=== PATIENT | female | born 1950 | race Caucasian/White ===

== ENCOUNTER 2017-10-10 18:07 | Emergency (ER) | payer MEDICARE, OTHER ==
[~2017-10-10] VITALS: Ht 157.5 cm; Wt 56.7 kg
[2017-10-10 18:07] VITALS: BP 138/83
[~2017-10-10 18:07] MED LIST: ACET325T9 PO; ASPI81TA59 PO; ATOR20TA58 PO; CARV3.12 PO
--- NOTE | 2017-10-10 20:00 | RAD ---
Clinical Indication: Left lower extremity intermittent pain for 3 weeks. Technique: Study is dated October 10, 2017. Grayscale, color flow and spectral waveform analysis was performed of the left lower extremity with and without compression. Findings: There is normal compressibility of all visualized vein segments. No evidence of DVT is present on grayscale or color images. There is normal phasicity of waveform. There is normal augmentation. Impression: No evidence of deep vein thrombosis. Electronically signed by: Bhavin Jurado MD (10/10/2017 7:57 PM) [facility]
[2017-10-10] MEDS ORDERED: METH4TAB2 PO (20:36)
--- NOTE | 2017-10-10 20:36 | PHYS DOC ---
Past History Past Medical History: CAD, Hypertension, [place] Past Surgical History: No Surgical History, Tonsillectomy Alcohol Use: None Drug Use: None Adult General Chief Complaint Chief Complaint: LOWER EXT PAIN HPI HPI Patient is a 67 year old female who presents with complaint of left lower shoulder pain. Patient states that she has been having pain and cramping off and on over the past 2 weeks. The patient states that the pain originates towards the back of her leg and travels down to her foot. Patient states that the pain worsens with movement. Patient has not noticed any swelling to the affected extremity. Patient states that she injured her back in July of this year and underwent therapy with chiropractor which helped reduce her back pain. Patient does not remember falling or having any additional injury but states that she has been working outside in her yard and started noticing worsening pain in the left leg since then. Patient has taken aspirin at home with no significant improvement in symptoms. The patient is primarily concerned that she may have a blood clot in her left lower extremity. Patient denies any prolonged immobilization, recent travel or surgery, or history of DVT. The patient states that her pain worsens with movement rates as 8 out of 10 at its worst. Review of Systems Review of Systems Constitutional: Denies fever or chills [] Eyes: Denies change in visual acuity, redness, or eye pain [] HENT: Denies nasal congestion or sore throat [] Respiratory: Denies cough or shortness of breath [] Cardiovascular: Denies chest pain or edema[] GI: Denies abdominal pain, nausea, vomiting, bloody stools or diarrhea [] : Denies dysuria or hematuria [] Musculoskeletal: Left lower extremity pain[] Integument: Denies rash or skin lesions [] Neurologic: Denies headache, focal weakness or sensory changes [] All other systems were reviewed and found to be within normal limits, except as documented in this note. Allergies Allergies Allergies Coded Allergies Type Severity Reaction Last Updated Verified No Known Drug Allergies 11/14/15 No Physical Exam Physical Exam Constitutional: Well developed, well nourished, no acute distress, non-toxic appearance. [] HENT: Normocephalic, atraumatic, bilateral external ears normal, oropharynx moist, no oral exudates, nose normal. [] Eyes: PERRLA, EOMI, conjunctiva normal, no discharge. [] Neck: Normal range of motion, no tenderness, supple, no stridor. [] Cardiovascular:Heart rate regular rhythm, no murmur [] Lungs & Thorax: Bilateral breath sounds clear to auscultation [] Abdomen: Bowel sounds normal, soft, no tenderness, no masses, no pulsatile masses. [] Skin: Warm, dry, no erythema, no rash. [] Back: No midline or paraspinous muscle tenderness to palpation, no CVA tenderness. [] Extremities: No obvious swelling or deformity to the left lower extremity, mild tenderness to palpation along posterior aspect of left thigh and left calf, no cyanosis, no clubbing, ROM intact, no edema. [] Neurologic: Alert and oriented X 3, normal motor function, normal sensory function, no focal deficits noted. [] Current Patient Data Vital Signs Vital Signs Date Time Temp Pulse Resp B/P (MAP) Pulse Ox O2 Delivery O2 Flow Rate FiO2 10/10/17 18:07 97.0 71 20 96 Room Air EKG EKG Not performed[] Radiology/Procedures Radiology/Procedures [address] [address] IMAGING REPORT Signed PATIENT: CALEB TAYLOR ACCOUNT: [id number] : 1950 LOCATION: ER AGE: 67 SEX: F EXAM STATUS: REG ER ORD. PHYSICIAN: BA MELENDEZ MD REASON: pain in calf left leg PROCEDURE: VENOUS LOWER EXTREMITY LEFT Clinical Indication: Left lower extremity intermittent pain for 3 weeks. Technique: Study is dated October 10, 2017. Grayscale, color flow and spectral waveform analysis was performed of the left lower extremity with and without compression. Findings: There is normal compressibility of all visualized vein segments. No evidence of DVT is present on grayscale or color images. There is normal phasicity of waveform. There is normal augmentation. Impression: No evidence of deep vein thrombosis. Electronically signed by: Bhavin Jurado MD (10/10/2017 7:57 PM) [facility] DICTATED AND SIGNED BY: BHAVIN JURADO MD DATE: 10/10/171955 CC: BA MELENDEZ MD; DANIEL LEAL MD ~ [] Course & Med Decision Making Course & Med Decision Making Pertinent Labs and Imaging studies reviewed. (See chart for details) Ultrasound negative for DVT. Patient's symptoms appear consistent with sciatica. The patient will be started on Medrol Dosepak for continued treatment. Advised continued use of Tylenol at home to help with pain. Recommended follow-up in 5-7 days with primary doctor for reevaluation and return to emergency department for any worsening symptoms. Patient was understanding and in agreement with treatment plan. Dragon Disclaimer Dragon Disclaimer This electronic medical record was generated, in whole or in part, using a voice recognition dictation system. Departure Departure: Impression: Primary Impression: Sciatica Disposition: HOME, SELF-CARE Condition: STABLE Referrals: DANIEL LEAL MD (PCP) Patient Instructions: Sciatica Additional Instructions: Follow-up with your primary doctor in 5-7 days. Return to the emergency department for any worsening symptoms. Scripts Methylprednisolone (MEDROL) 4 Mg Tab.ds.pk 1 PKG PO UD, #1 PKG Prov: BA MELENDEZ MD 10/10/17 Problem Qualifiers Primary Impression: Sciatica Laterality: left Qualified Codes: M54.32 - Sciatica, left side BA MELENDEZ MD Oct 10, 2017 20:36
== END 2017-10-10 20:38 | disposition home or self-care (01) ==
LOC: ER 18:07
DX: M54.32 Sciatica, left side (principal); I25.10 Atherosclerotic heart disease of native coronary artery without angina pectoris; I10 Essential (primary) hypertension; I25.2 Old myocardial infarction
CPT/HCPCS: 93971; 99284-25

== ENCOUNTER 2018-09-28 20:56 | Emergency (ER) | payer MEDICARE, OTHER ==
[~2018-09-28] VITALS: Ht 162.6 cm; Wt 59.0 kg
[~2018-09-28 20:56] MED LIST changes: +METH4TAB2 PO
--- NOTE | 2018-09-28 21:04 | ED.ADGEN ---
Past History Past Medical History: Anxiety, Arthritis, CAD, Hypertension, [place] Past Surgical History: No Surgical History, Tonsillectomy Smoking: Cigarettes Alcohol Use: None Drug Use: None Adult General Chief Complaint Chief Complaint "... I was just sitting on the couch.. and watching some shows.. petting my cat " Rotten" he is about 17 yrs. old.. he has three legs.. . but about 4:30 I was feeling a little off.. and checked my BP it was 185/80... I took my meds.. a nd re- checked later and it was 209/90... I called...and they said come in and get checked out... HPI HPI Patient is a 68 year old female who presents with above hx and complaints of accelerated HTN. Pt. has hx of HTN, CADz and TN . Pt. reports compliance with her hypertensive meds. Patient denies any change in meds. Patient denies any excessive use of anti-histamines for her recent upper respiratory infection. Patient normally follows with Dr. Vasquez. No recent travel. No specific ill contacts. No history immunosuppression. Review of Systems Review of Systems Constitutional: Denies fever or chills [] Eyes: Denies change in visual acuity, redness, or eye pain [] HENT: Hx nasal congestion Respiratory: Denies cough or shortness of breath [] Cardiovascular: No additional information not addressed in HPI [] GI: Denies abdominal pain, nausea, vomiting, bloody stools or diarrhea [] : Denies dysuria or hematuria [] Musculoskeletal: Denies back pain or joint pain [] Integument: Denies rash or skin lesions [] Neurologic: Denies headache, focal weakness or sensory changes [] Endocrine: Denies polyuria or polydipsia [] All other systems were reviewed and found to be within normal limits, except as documented in this note. Family History Family History HTN Current Medications Current Medications Current Medications Medications (Trade) Dose Ordered Sig/Thalia Start Time Stop Time Status Last Admin Dose Admin Clonidine HCl (Catapres Tts-2) 1 patch 1X ONCE 09/28/18 22:45 09/28/18 22:47 DC 09/28/18 23:46 1 PATCH Clonidine HCl (Catapres) 0.2 mg 1X ONCE 09/28/18 22:45 09/28/18 22:47 DC Info (Do NOT chart on this entry -- for MONITORING) 1 each PRN DAILY PRN 09/29/18 00:15 09/29/18 02:35 DC Iohexol (Omnipaque 350 Mg/ml) 90 ml 1X ONCE 09/29/18 00:15 09/29/18 00:16 DC 09/29/18 00:21 90 ML Lactated Ringer's 1,000 ml @ 100 mls/hr Q10H 09/28/18 21:15 09/29/18 02:35 DC 09/28/18 23:45 100 MLS/HR Allergies Allergies Allergies Coded Allergies Type Severity Reaction Last Updated Verified tetanus and diphtheria toxoids Allergy Unknown 09/28/18 Yes Physical Exam Physical Exam Constitutional: Mild distress, non-toxic appearance. [] HENT: Normocephalic, atraumatic, bilateral external ears normal, oropharynx moist, no oral exudates, recent nasal congestion. Eyes: PERRLA, EOMI, conjunctiva normal, no discharge. [] Glasses Neck: Normal range of motion, no tenderness, supple, no stridor. [] Cardiovascular : Bradycardia Heart rate regular rhythm, no murmur [] Lungs & Thorax: Bilateral breath sounds equal at apexes with few scattered wheezes auscultation [] Abdomen: Bowel sounds normal, soft, no tenderness, no masses, no pulsatile masses. [] Skin: Warm, dry, no erythema, no rash. [] Back: No tenderness, no CVA tenderness. [] Extremities: No tenderness, no cyanosis, no clubbing, ROM intact, no edema. [] Mild arthritic changes. Neurologic: Alert and oriented X 3, normal motor function, normal sensory function, no focal deficits noted. [] Psychologic: Affect anxious, judgement normal, mood normal. [] Current Patient Data Vital Signs Vital Signs Date Time Temp Pulse Resp B/P (MAP) Pulse Ox O2 Delivery O2 Flow Rate FiO2 09/28/18 21:10 98.2 75 20 163/67 (99) 95 Room Air Lab Results Laboratory Tests Test 09/28/18 21:30 White Blood Count 7.8 x10^3/uL (4.0-11.0) Red Blood Count 4.87 x10^6/uL (3.50-5.40) Hemoglobin 15.2 g/dL (12.0-15.5) Hematocrit 44.8 % (36.0-47.0) Mean Corpuscular Volume 92 fL (79-100) Mean Corpuscular Hemoglobin 31 pg (25-35) Mean Corpuscular Hemoglobin Concent 34 g/dL (31-37) Red Cell Distribution Width 14.7 % (11.5-14.5) H Platelet Count 300 x10^3/uL (140-400) Neutrophils (%) (Auto) 61 % (31-73) Lymphocytes (%) (Auto) 30 % (24-48) Monocytes (%) (Auto) 8 % (0-9) Eosinophils (%) (Auto) 1 % (0-3) Basophils (%) (Auto) 1 % (0-3) Neutrophils # (Auto) 4.7 x10^3uL (1.8-7.7) Lymphocytes # (Auto) 2.3 x10^3/uL (1.0-4.8) Monocytes # (Auto) 0.6 x10^3/uL (0.0-1.1) Eosinophils # (Auto) 0.1 x10^3/uL (0.0-0.7) Basophils # (Auto) 0.1 x10^3/uL (0.0-0.2) Prothrombin Time 9.8 SEC (9.4-11.4) Prothrombin Time INR 1.0 (0.9-1.1) PTT 29 SEC (23-33) D-Dimer (Dolly) 0.71 mg/L (0.00-0.50) H Urine Collection Type Void Urine Color Yellow Urine Clarity Clear Urine pH 6.0 Urine Specific [place] 1.010 Urine Protein Neg (NEG-TRACE) Urine Glucose (UA) Neg mg/dL (NEG) Urine Ketones (Stick) Neg mg/dL (NEG) Urine Blood Trace (NEG) Urine Nitrite Neg (NEG) Urine Bilirubin Neg (NEG) Urine Urobilinogen Dipstick 0.2 mg/dL (0.2 mg/dL) Urine Leukocyte Esterase Neg (NEG) Urine RBC Occ /HPF (0-2) Urine WBC 0 /HPF (0-4) Urine Squamous Epithelial Cells Occ /LPF Urine Bacteria 0 /HPF (0-FEW) Sodium Level 135 mmol/L (136-145) L Potassium Level 4.3 mmol/L (3.5-5.1) Chloride Level 100 mmol/L (98-107) Carbon Dioxide Level 25 mmol/L (21-32) Anion Gap 10 (6-14) Blood Urea Nitrogen 15 mg/dL (7-20) Creatinine 0.8 mg/dL (0.6-1.0) Estimated GFR (Cockcroft-Gault) 71.5 Glucose Level 91 mg/dL (70-99) Calcium Level 9.0 mg/dL (8.5-10.1) Magnesium Level 2.1 mg/dL (1.8-2.4) Total Bilirubin 0.2 mg/dL (0.2-1.0) Direct Bilirubin 0.1 mg/dL (0.0-0.2) Aspartate Amino Transferase (AST) 19 U/L (15-37) Alanine Aminotransferase (ALT) 23 U/L (14-59) Alkaline Phosphatase 78 U/L (46-116) Creatine Kinase 56 U/L (26-192) Troponin I Quantitative < 0.017 ng/mL (0-0.055) MK-Rrs-W-Type Natriuretic Peptide 81 pg/mL (0-124) Total Protein 6.9 g/dL (6.4-8.2) Albumin 3.7 g/dL (3.4-5.0) Lipase 110 U/L (73-393) EKG EKG My interpretation EKG shows a sinus rhythm at 62 bpm. No findings acute STEMI of contralateral changes.[] Radiology/Procedures Radiology/Procedures My interpretation chest x-ray shows no acute cardiopulmonary findings.[]Does have some emphysematous COPD like changes. Some nodules Lt LL or patchy infiltrates CT of chest shows no central PE. Had Cystic Emphysema and nodules LtLL. See formal reports when available. Course & Med Decision Making Course & Med Decision Making Pertinent Labs and Imaging studies reviewed. (See chart for details). Pt. currently declines admission. Pt.to follow up with Dr. Vasquez and review blood pressure meds and x-rays and labs completed tonight in the emergency department. Patient should have follow- up CT or ultrasound evaluation of left lower pulmonary nodules. Encouraged on smoking. Patient return if any concerns. Patient wear clonidine patch until follow-up. If blood pressure becomes too low remove blood pressure patch. Return if any concerns. [] Final Impression Final Impression 1. Accelerated HTN[] 2. Elevated D-dimer 0.71 3. Emphysema 4. Lt. Lower lung nodules 5. Mild Elevation of D-dimer. 0.71 Dragon Disclaimer Dragon Disclaimer This electronic medical record was generated, in whole or in part, using a voice recognition dictation system. Discharge Summary Visit Information Final Diagnosis Problems Medical Problems: (1) Hypertension Status: Acute (2) Pulmonary nodules Status: Acute Brief Hospital Course Allergies Allergies Coded Allergies Type Severity Reaction Last Updated Verified tetanus and diphtheria toxoids Allergy Unknown 09/28/18 Yes Vital Signs Vital Signs Date Time Temp Pulse Resp B/P (MAP) Pulse Ox O2 Delivery O2 Flow Rate FiO2 09/28/18 21:10 98.2 75 20 163/67 (99) 95 Room Air Lab Results Laboratory Tests Test 09/28/18 21:30 White Blood Count 7.8 x10^3/uL (4.0-11.0) Red Blood Count 4.87 x10^6/uL (3.50-5.40) Hemoglobin 15.2 g/dL (12.0-15.5) Hematocrit 44.8 % (36.0-47.0) Mean Corpuscular Volume 92 fL (79-100) Mean Corpuscular Hemoglobin 31 pg (25-35) Mean Corpuscular Hemoglobin Concent 34 g/dL (31-37) Red Cell Distribution Width 14.7 % (11.5-14.5) Platelet Count 300 x10^3/uL (140-400) Neutrophils (%) (Auto) 61 % (31-73) Lymphocytes (%) (Auto) 30 % (24-48) Monocytes (%) (Auto) 8 % (0-9) Eosinophils (%) (Auto) 1 % (0-3) Basophils (%) (Auto) 1 % (0-3) Neutrophils # (Auto) 4.7 x10^3uL (1.8-7.7) Lymphocytes # (Auto) 2.3 x10^3/uL (1.0-4.8) Monocytes # (Auto) 0.6 x10^3/uL (0.0-1.1) Eosinophils # (Auto) 0.1 x10^3/uL (0.0-0.7) Basophils # (Auto) 0.1 x10^3/uL (0.0-0.2) Prothrombin Time 9.8 SEC (9.4-11.4) Prothromb Time International Ratio 1.0 (0.9-1.1) Activated Partial Thromboplast Time 29 SEC (23-33) D-Dimer (Dolly) 0.71 mg/L (0.00-0.50) Urine Collection Type Void Urine Color Yellow Urine Clarity Clear Urine pH 6.0 Urine Specific [place] 1.010 Urine Protein Neg (NEG-TRACE) Urine Glucose (UA) Neg mg/dL (NEG) Urine Ketones (Stick) Neg mg/dL (NEG) Urine Blood Trace (NEG) Urine Nitrite Neg (NEG) Urine Bilirubin Neg (NEG) Urine Urobilinogen Dipstick 0.2 mg/dL (0.2 mg/dL) Urine Leukocyte Esterase Neg (NEG) Urine RBC Occ /HPF (0-2) Urine WBC 0 /HPF (0-4) Urine Squamous Epithelial Cells Occ /LPF Urine Bacteria 0 /HPF (0-FEW) Sodium Level 135 mmol/L (136-145) Potassium Level 4.3 mmol/L (3.5-5.1) Chloride Level 100 mmol/L (98-107) Carbon Dioxide Level 25 mmol/L (21-32) Anion Gap 10 (6-14) Blood Urea Nitrogen 15 mg/dL (7-20) Creatinine 0.8 mg/dL (0.6-1.0) Estimated GFR (Cockcroft-Gault) 71.5 Glucose Level 91 mg/dL (70-99) Calcium Level 9.0 mg/dL (8.5-10.1) Magnesium Level 2.1 mg/dL (1.8-2.4) Total Bilirubin 0.2 mg/dL (0.2-1.0) Direct Bilirubin 0.1 mg/dL (0.0-0.2) Aspartate Amino Transf (AST/SGOT) 19 U/L (15-37) Alanine Aminotransferase (ALT/SGPT) 23 U/L (14-59) Alkaline Phosphatase 78 U/L (46-116) Creatine Kinase 56 U/L (26-192) Troponin I Quantitative < 0.017 ng/mL (0-0.055) NJ-Tfh-A-Type Natriuretic Peptide 81 pg/mL (0-124) Total Protein 6.9 g/dL (6.4-8.2) Albumin 3.7 g/dL (3.4-5.0) Lipase 110 U/L (73-393) Brief Hospital Course Ms. Orozco is a 68 old female who presented with accelerated HTN. Declined admit. To follow up with primary. Discharge Information Condition at Discharge: Improved, Stable Disposition/Orders: D/C to Home Dischare Medications Current Medications Lactated Ringer's 1,000 ml @ 100 mls/hr Q10H IV Last administered on 09/28/18at 23:45; Admin Dose 100 MLS/HR; Start 09/28/18 at 21:15; Stop 09/29/18 at 02:35; Status DC Clonidine HCl (Catapres Tts-2) 1 patch 1X ONCE TD Last administered on 09/28/18at 23:46; Admin Dose 1 PATCH; Start 09/28/18 at 22:45; Stop 09/28/18 at 22:47; Status DC Clonidine HCl (Catapres) 0.2 mg 1X ONCE PO ; Start 09/28/18 at 22:45; Stop 09/28/18 at 22:47; Status DC Iohexol (Omnipaque 350 Mg/ml) 90 ml 1X ONCE IV Last administered on 09/29/18at 00:21; Admin Dose 90 ML; Start 09/29/18 at 00:15; Stop 09/29/18 at 00:16; Status DC Info (Do NOT chart on this entry -- for MONITORING) 1 each PRN DAILY PRN MC SEE COMMENTS; Start 09/29/18 at 00:15; Stop 09/29/18 at 02:35; Status DC Active Scripts Active Reported Tylenol (Acetaminophen) 325 Mg Tablet 2 Tab PO PRN Q4HRS may resume as needed Atorvastatin Calcium 20 Mg Tablet 1 Tab PO HS may resume not given this admit Coreg (Carvedilol) 3.125 Mg Tablet 1 Tab PO BID last dose last night next dose due tonight Children's Aspirin (Aspirin) 81 Mg Tab.chew 81 Mg PO DAILY may resume not given this admit Dragon Disclaimer This chart was dictated in whole or in part using Voice Recognition software in a busy, high-work load, and often noisy Emergency Department environment. It may contain unintended and wholly unrecognized errors or omissions. PIPE CARBONE MD Sep 28, 2018 21:04
[2018-09-28] MEDS ORDERED: IV RINGERS SOLUTION,LACTATED 1,000 ML IV SCH (21:15)
--- NOTE | 2018-09-28 21:27 | EKG ---
[address] [address] Test Date: 2018-09-28 Test Time: 21:25:16 Pat Name: CALEB TAYLOR Department: Room: Gender: F Referral Rn: : [id number] Requested By: PIPE CARBONE Order Number: [id number] Reading MD: Measurements Intervals [place] Rate: 62 P: 47 TN: 134 QRS: 64 QRSD: 82 T: 39 QT: 412 QTc: 420 Interpretive Statements SINUS RHYTHM NO SPECIFIC ECG ABNORMALITIES RI6.01 Compared to ECG 11/14/2015 21:07:52 No significant changes
[2018-09-28 22:02] LABS: BASO # 0.1 x10^3/uL (0.0-0.2); BASO % 1 % (0-3); EOS # 0.1 x10^3/uL (0.0-0.7); EOS % 1 % (0-3); HEMATOCRIT 44.8 % (36.0-47.0); HEMOGLOBIN 15.2 g/dL (12.0-15.5); LYMPH # 2.3 x10^3/uL (1.0-4.8); LYMPH % 30 % (24-48); MEAN CORPUSCULAR HEMOGLOBIN 31 pg (25-35); MEAN CORPUSCULAR HGB CONC 34 g/dL (31-37); MEAN CORPUSCULAR VOLUME 92 fL (79-100); MONO # 0.6 x10^3/uL (0.0-1.1); MONO % 8 % (0-9); NEUT # 4.7 x10^3uL (1.8-7.7); NEUT % 61 % (31-73); PLATELET COUNT 300 x10^3/uL (140-400); RED BLOOD COUNT 4.87 x10^6/uL (3.50-5.40); RED CELL DISTRIBUTION WIDTH 14.7 % (11.5-14.5); WHITE BLOOD COUNT 7.8 x10^3/uL (4.0-11.0)
[2018-09-28 22:07] LABS: BACTERIA,URINE 0 /HPF (0-FEW); BILIRUBIN,URINE NEG (NEG); CLARITY,URINE CLEAR; COLOR,URINE YELLOW; GLUCOSE,URINE NEG (NEG); NITRITE,URINE NEG (NEG); RBC,URINE OCC /HPF (0-2); SQUAMOUS EPITHELIAL CELL,UR OCC /LPF; UROBILINOGEN,URINE 0.2 mg/dL (0.2 mg/dL); WBC,URINE 0 /HPF (0-4)
[2018-09-28 22:20] LABS: ALBUMIN 3.7 g/dL (3.4-5.0); CREATININE 0.8 mg/dL (0.6-1.0); DIRECT BILIRUBIN 0.1 mg/dL (0.0-0.2); GFR 71.5; MAGNESIUM 2.1 mg/dL (1.8-2.4); POTASSIUM 4.3 mmol/L (3.5-5.1); TOTAL BILIRUBIN 0.2 mg/dL (0.2-1.0); TOTAL PROTEIN 6.9 g/dL (6.4-8.2)
[2018-09-28] MEDS ORDERED: cloNIDine HCL 0.1 MG TABLET PO ONE (22:45)
[2018-09-28] MEDS ORDERED: cloNIDine TTS-2 1 PATCH PATCH TD ONE (22:45)
[2018-09-29] MEDS ORDERED: CONTRAST GIVEN MC PRN (00:15)
[2018-09-29] MEDS ORDERED: IOHEXOL 350 MG/ML 100 ML VIAL. IV ONE (00:15)
--- NOTE | 2018-09-29 01:35 | RAD ---
INDICATION: Dyspnea COMPARISON: October 2015 TECHNIQUE: Axial CT images obtained through the chest. Intravenous contrast utilized. Angiogram 3D images processed per protocol. One or more of the following individualized dose reduction techniques were utilized for this examination: 1. Automated exposure control; 2. Adjustment of the mA and/or kV according to patient size; 3. Use of iterative reconstruction technique. FINDINGS: Large amount of patient motion limits the exam. Cystic changes bilateral lungs. No evidence of pneumothorax. There are some groundglass opacities. Multifocal plaque is seen throughout the thoracic aorta. Scattered lymph nodes within the mediastinum. Degenerative changes spine. Portion of a ascending thoracic aorta obscured by motion but no definite aneurysm in visualized portions. Nodular structure at the left lower lung measuring up to approximately 15 x 6 mm. There is a couple of adjacent nodular structures No embolus in the main, right main or left main pulmonary artery. Motion limits more peripheral evaluation. Mild loss of height of some of the thoracic vertebral bodies. IMPRESSION: No embolus in the central pulmonary arteries however motion limits peripheral evaluation. Within the left lower lung there is a cluster of nodular structure identified. Although its possible that this could be from causes such as nodular atelectasis follow-up will be needed to ensure no increase in this finding. Further workup option includes either obtaining a short interval follow-up CT in 3 months or a PET/CT now to further evaluate given that neoplastic causes are within the differential for this finding. There are some prominent lymph nodes in the mediastinum and hilum could be followed at that time as well. Cystic changes within the lungs. Mild groundglass opacities. Could be from atelectasis but small airway inflammation or edema can have this appearance as well. Electronically signed by: Tony Gemran MD (09/29/2018 1:32 AM) [facility]
[2018-09-29 02:00] VITALS: BP 128/66
--- NOTE | 2018-09-29 07:17 | RAD ---
EXAM: CHEST 1 VIEW History: Dyspnea, hypertension COMPARISON: None available. TECHNIQUE: Single portable radiograph of the chest FINDINGS: The cardiac silhouette is unremarkable. The lungs are clear bilaterally. The costophrenic sulci are clear and well demarcated. IMPRESSION: No radiographic evidence of an acute cardiopulmonary process.
[2018-09-29 14:05] LABS: THYROID STIM HORMONE (TSH) 4.932 uIU/mL (0.358-3.740)
== END 2018-09-29 02:30 | disposition home or self-care (01) ==
LOC: ER 20:56
DX: I10 Essential (primary) hypertension (principal); R79.1 Abnormal coagulation profile; J43.9 Emphysema, unspecified; R91.8 Other nonspecific abnormal finding of lung field; F41.9 Anxiety disorder, unspecified; M19.90 Unspecified osteoarthritis, unspecified site; I25.10 Atherosclerotic heart disease of native coronary artery without angina pectoris; I25.2 Old myocardial infarction; F17.210 Nicotine dependence, cigarettes, uncomplicated; Z88.7 Allergy status to serum and vaccine
CPT/HCPCS: 36415; 71046; 71275; 80048; 80061; 80076; 81001; 82550; 83690; 83735; 83880; 84443; 84484; 85025; 85379; 85610; 85730; 93005; 99285; J7120; Q9967

== ENCOUNTER 2018-11-18 11:35 | Observation (INO) | payer MEDICARE, OTHER ==
[~2018-11-18] VITALS: Ht 162.6 cm; Wt 58.1 kg
--- NOTE | 2018-11-18 12:10 | PHYS DOC ---
Past History Past Medical History: Anxiety, Arthritis, CAD, High Cholesterol, Hypertension, [place] Past Surgical History: Tonsillectomy Smoking: Cigarettes Additional Smoking Information: PACK/DAY Alcohol Use: Rarely Drug Use: None Adult General Chief Complaint Chief Complaint: CHEST PAIN HPI HPI Patient is a 68-year-old female presents complaining of chest discomfort that started this morning shortly after waking up from sleep. Increases with both exertion as well as movement of her left arm. No nausea or vomiting. No diaphoresis. She had similar chest discomfort in November 2012 when she was diagnosed with an [place]. She underwent cardiac catheter and the clot dissolved as it was being manipulated. She denies having any cardiac stents. Reports that the discomfort is currently a 3 out of 10 with rest, increases to an 8 or 9 out of 10 with movement and exertion. Denies any shortness of breath. Denies any respirophasic component to the discomfort.[] Review of Systems Review of Systems Constitutional: Denies fever or chills [] Eyes: Denies change in visual acuity, redness, or eye pain [] HENT: Denies nasal congestion or sore throat [] Respiratory: Denies cough or shortness of breath [] Cardiovascular: No additional information not addressed in HPI [] GI: Denies abdominal pain, nausea, vomiting, bloody stools or diarrhea [] : Denies dysuria or hematuria [] Musculoskeletal: Denies back pain or joint pain [] Integument: Denies rash or skin lesions [] Neurologic: Denies headache, focal weakness or sensory changes [] Endocrine: Denies polyuria or polydipsia [] All other systems were reviewed and found to be within normal limits, except as documented in this note. Allergies Allergies Allergies Coded Allergies Type Severity Reaction Last Updated Verified tetanus and diphtheria toxoids Allergy Unknown 09/28/18 Yes Physical Exam Physical Exam Constitutional: Well developed, well nourished, no acute distress, non-toxic appearance. [] HENT: Normocephalic, atraumatic, bilateral external ears normal, oropharynx moist, no oral exudates, nose normal. [] Eyes: PERRLA, EOMI, conjunctiva normal, no discharge. [] Neck: Normal range of motion, no tenderness, supple, no stridor. [] Cardiovascular:Heart rate regular rhythm, no murmur [] Lungs & Thorax: Bilateral breath sounds clear to auscultation [] Abdomen: Bowel sounds normal, soft, no tenderness, no masses, no pulsatile masses. [] Skin: Warm, dry, no erythema, no rash. [] Back: No tenderness, no CVA tenderness. [] Extremities: No tenderness, no cyanosis, no clubbing, ROM intact, no edema. [] Neurologic: Alert and oriented X 3, normal motor function, normal sensory function, no focal deficits noted. [] Psychologic: Affect normal, judgement normal, mood normal. [] Current Patient Data Vital Signs Vital Signs Date Time Temp Pulse Resp B/P (MAP) Pulse Ox O2 Delivery O2 Flow Rate FiO2 11/18/18 11:40 98.0 68 20 97 Room Air EKG EKG EKG shows a sinus rhythm at 58 bpm, normal axis, normal QTC, no ST elevations. Interpreted by me at 1152. Compared with EKG of 09/28/2018, no acute changes are present.[] Radiology/Procedures Radiology/Procedures PROCEDURE: PORTABLE CHEST 1V Examination: PORTABLE CHEST 1V History: Chest pain Comparison/Correlation: 09/29/2018 CT chest with contrast Findings: Upright portable frontal view chest was obtained. Heart size and pulmonary vasculature are normal. No infiltrate or pleural effusion. No pneumothorax. Bony structures are unremarkable. Levoconvex scoliosis of the low thoracic and upper lumbar spine is partially seen. Impression: No active disease.[] Course & Med Decision Making Course & Med Decision Making Pertinent Labs and Imaging studies reviewed. (See chart for details) [] Dragon Disclaimer Dragon Disclaimer This electronic medical record was generated, in whole or in part, using a voice recognition dictation system. Departure Departure: Referrals: DANIEL LEAL MD (PCP) FELIPE CRUZ DO Nov 18, 2018 12:10
[2018-11-18] MEDS ORDERED: NITROGLYCERIN SUBLINGUAL 0.4 MG BOTTLE OF 25. SL PRN ×2 (12:15→13:30)
--- NOTE | 2018-11-18 12:16 | EKG ---
[address] [address] Test Date: 2018-11-18 Test Time: 11:48:56 Pat Name: CALEB TAYLOR Department: Room: Gender: F Tobacco Prizer: : 1950 Requested By: FELIPE CRUZ Order Number: [id number] Reading MD: Measurements Intervals [place] Rate: 58 P: 45 DE: 132 QRS: 81 QRSD: 78 T: 47 QT: 428 QTc: 424 Interpretive Statements SINUS RHYTHM NORMAL ECG RI6.01 No previous ECG available for comparison
[2018-11-18 12:17] LABS: BASO # 0.1 x10^3/uL (0.0-0.2); BASO % 1 % (0-3); EOS % 1 % (0-3); HEMATOCRIT 44.7 % (36.0-47.0); HEMOGLOBIN 14.9 g/dL (12.0-15.5); LYMPH # 1.6 x10^3/uL (1.0-4.8); LYMPH % 21 % (24-48); MEAN CORPUSCULAR HEMOGLOBIN 31 pg (25-35); MEAN CORPUSCULAR HGB CONC 33 g/dL (31-37); MEAN CORPUSCULAR VOLUME 94 fL (79-100); MONO # 0.5 x10^3/uL (0.0-1.1); MONO % 6 % (0-9); NEUT # 5.7 x10^3uL (1.8-7.7); NEUT % 72 % (31-73); PLATELET COUNT 290 x10^3/uL (140-400); RED BLOOD COUNT 4.75 x10^6/uL (3.50-5.40); RED CELL DISTRIBUTION WIDTH 14.8 % (11.5-14.5); WHITE BLOOD COUNT 7.9 x10^3/uL (4.0-11.0)
--- NOTE | 2018-11-18 12:25 | RAD ---
Examination: PORTABLE CHEST 1V History: Chest pain Comparison/Correlation: 09/29/2018 CT chest with contrast Findings: Upright portable frontal view chest was obtained. Heart size and pulmonary vasculature are normal. No infiltrate or pleural effusion. No pneumothorax. Bony structures are unremarkable. Levoconvex scoliosis of the low thoracic and upper lumbar spine is partially seen. Impression: No active disease. Electronically signed by: Vinicio Wild MD (11/18/2018 12:22 PM) [id number]
[2018-11-18 12:58] LABS: ALBUMIN 3.7 g/dL (3.4-5.0); ALBUMIN/GLOBULIN RATIO 1.2 (1.0-1.7); TOTAL PROTEIN 6.8 g/dL (6.4-8.2)
[2018-11-18 12:59] LABS: CALCIUM 8.8 mg/dL (8.5-10.1); CREATININE 0.8 mg/dL (0.6-1.0); GFR 71.5; TOTAL BILIRUBIN 0.3 mg/dL (0.2-1.0)
[2018-11-18 13:00] LABS: POTASSIUM 4.4 mmol/L (3.5-5.1)
[2018-11-18] MEDS ORDERED: ONDANSETRON PF 4 MG/2 ML VIAL. IV PRN (13:30)
[2018-11-18] MEDS ORDERED: ACETAMINOPHEN 325 MG TABLET PO PRN (13:30)
[2018-11-18 15:32] VITALS: BP 155/58
[2018-11-18] MEDS ORDERED: CARV3.12 PO (16:08)
[2018-11-18] MEDS ORDERED: ACETAMINOPHEN 325 MG TABLET PO SCH (16:15)
--- NOTE | 2018-11-18 19:22 | PDOC2 ---
LEA TELLEZ COLLECTIONS ANALYST 11/18/18 1922: CARDIAC CONSULT DATE OF CONSULT Date Of Consult DATE: 11/18/18 TIME: 19:15 REASON FOR CONSULT Reason for Consult Chest pain REFERRING PHYSICIAN Referring Physician Dr. Hi SOURCE Source: Chart review, Patient HPI History of Present Illness This is a 68 yo female who presented secondary to chest pain. Patient reports pain began this morning. Located in her left chest. Describes as stabbing in nature. Radiated through to her back. No associated dizziness, diaphoresis, SOA, palpitations, or nausea/vomiting. Report DE in 2012; underwent heart cath at that time without any intervention. No recent WALLACE or chest pain with activity. PAST MEDICAL HISTORY Cardiovascular: HTN, hyperipidemia PAST SURGICAL HISTORY Past Surgical History: Tonsillectomy FAMILY HISTORY Family History: Diabetes SOCIAL HISTORY Smoke: 1 pack per day ALCOHOL: none Lives: with Family CURRENT MEDICATIONS Current Medications Current Medications Nitroglycerin (Nitrostat) 0.4 mg PRN Q5MIN PRN SL CP RATING > 1/10 Last administered on 11/18/18at 12:16; Start 11/18/18 at 12:15; Stop 11/18/18 at 16:14; Status DC Ondansetron HCl (Zofran) 4 mg PRN Q4HRS PRN IV NAUSEA/VOMITING; Start 11/18/18 at 13:30; Stop 11/19/18 at 13:29 Acetaminophen (Tylenol) 650 mg PRN Q4HRS PRN PO FEVER; Start 11/18/18 at 13:30; Stop 11/19/18 at 13:29 Nitroglycerin (Nitrostat) 0.4 mg PRN Q5MIN PRN SL CHEST PAIN; Start 11/18/18 at 13:30; Stop 11/19/18 at 13:29 Acetaminophen (Tylenol) 650 mg PRN Q4HRS PO ; Start 11/18/18 at 16:15; Stop 11/18/18 at 16:15; Status DC Atorvastatin Calcium (Lipitor) 20 mg HS PO ; Start 11/18/18 at 21:00 Aspirin (Children'S Aspirin) 81 mg DAILYWBKFT PO ; Start 11/19/18 at 08:00 Carvedilol (Coreg) 6.25 mg DAILYWBKFT PO ; Start 11/19/18 at 08:00 Carvedilol (Coreg) 3.125 mg QHS PO ; Start 11/18/18 at 21:00 Active Scripts Active Reported Coreg (Carvedilol) 3.125 Mg Tablet 3.125 Mg PO QHS Tylenol (Acetaminophen) 325 Mg Tablet 2 Tab PO PRN Q4HRS may resume as needed Atorvastatin Calcium 20 Mg Tablet 1 Tab PO HS may resume not given this admit Coreg (Carvedilol) 3.125 Mg Tablet 2 Tab PO QAM last dose last night next dose due tonight Children's Aspirin (Aspirin) 81 Mg Tab.chew 81 Mg PO DAILY may resume not given this admit ALLERGIES Allergies: Coded Allergies: tetanus and diphtheria toxoids (Verified Allergy, Unknown, 09/28/18) ROS Review of Systems 14 point ROS conducted with pertinent positives noted above in HPI. PHYSICAL EXAM General: Alert, Oriented X3, Cooperative, No acute distress HEENT: Atraumatic, Mucous membr. moist/pink Lungs: Clear to auscultation, Normal air movement Heart: Regular rate, Normal S1, Normal S2, No murmurs Abdomen: Soft, No tenderness Extremities: No edema, Normal pulses Skin: No breakdown Neuro: Normal speech, Sensation intact Psych/Mental Status: Mental status NL, Mood NL MUSCULOSKELETAL: Osteoarthritic changes both hands VITALS Vital Signs Vital Signs Date Time Temp Pulse Resp B/P (MAP) Pulse Ox O2 Delivery O2 Flow Rate FiO2 11/18/18 15:32 97.8 55 20 155/58 (90) 93 Room Air LABS LABS Laboratory Tests Test 11/18/18 11:50 11/18/18 16:26 White Blood Count 7.9 x10^3/uL (4.0-11.0) Red Blood Count 4.75 x10^6/uL (3.50-5.40) Hemoglobin 14.9 g/dL (12.0-15.5) Hematocrit 44.7 % (36.0-47.0) Mean Corpuscular Volume 94 fL (79-100) Mean Corpuscular Hemoglobin 31 pg (25-35) Mean Corpuscular Hemoglobin Concent 33 g/dL (31-37) Red Cell Distribution Width 14.8 % (11.5-14.5) Platelet Count 290 x10^3/uL (140-400) Neutrophils (%) (Auto) 72 % (31-73) Lymphocytes (%) (Auto) 21 % (24-48) Monocytes (%) (Auto) 6 % (0-9) Eosinophils (%) (Auto) 1 % (0-3) Basophils (%) (Auto) 1 % (0-3) Neutrophils # (Auto) 5.7 x10^3uL (1.8-7.7) Lymphocytes # (Auto) 1.6 x10^3/uL (1.0-4.8) Monocytes # (Auto) 0.5 x10^3/uL (0.0-1.1) Eosinophils # (Auto) 0.0 x10^3/uL (0.0-0.7) Basophils # (Auto) 0.1 x10^3/uL (0.0-0.2) Prothrombin Time 9.9 SEC (9.4-11.4) Prothromb Time International Ratio 1.0 (0.9-1.1) Activated Partial Thromboplast Time 29 SEC (23-33) Sodium Level 138 mmol/L (136-145) Potassium Level 4.4 mmol/L (3.5-5.1) Chloride Level 102 mmol/L (98-107) Carbon Dioxide Level 26 mmol/L (21-32) Anion Gap 10 (6-14) Blood Urea Nitrogen 11 mg/dL (7-20) Creatinine 0.8 mg/dL (0.6-1.0) Estimated GFR (Cockcroft-Gault) 71.5 BUN/Creatinine Ratio 14 (6-20) Glucose Level 87 mg/dL (70-99) Calcium Level 8.8 mg/dL (8.5-10.1) Total Bilirubin 0.3 mg/dL (0.2-1.0) Aspartate Amino Transf (AST/SGOT) 22 U/L (15-37) Alanine Aminotransferase (ALT/SGPT) 22 U/L (14-59) Alkaline Phosphatase 87 U/L (46-116) Troponin I Quantitative < 0.017 ng/mL (0-0.055) < 0.017 ng/mL (0-0.055) YI-Lnv-Q-Type Natriuretic Peptide 113 pg/mL (0-124) Total Protein 6.8 g/dL (6.4-8.2) Albumin 3.7 g/dL (3.4-5.0) Albumin/Globulin Ratio 1.2 (1.0-1.7) Lipase 102 U/L (73-393) ECHOCARDIOGRAM Echocardiogram <Conclusion> Left ventricle systolic function is normal. The Ejection Fraction is estimated at 60-65%. There is normal LV segmental wall motion. Mild tricuspid regurgitation. The PA pressure was estimated at 29 mmHg. There is no evidence of significant pericardial effusion. DATE: 11/15/15 1355 STRESS TEST Stress Test Conclusion 1. Treadmill exercise cardioisotope stress test did not show any evidence of ischemia or infarct. 2. Normal left ventricle systolic function with ejection fraction calculated at 76%. 3. Compared to age and gender matched controls, patient had fair activity tolerance. 4. Low risk for cardiovascular events. DATE: 08/04/14 1617 ASSESSMENT/PLAN Assessment/Plan 1. Chest pain, atypical. Troponin negative x2- AMI ruled out. 2. Hyperlipidemia; statin 3. Hypertension 4. Tobaccoism; discussed/encouraged cessation Recommendations Lipids Echo to assess LV systolic function Continue ASA, statin, BB Plan for outpatient ischemic evaluation TODD LLOYD MD 11/19/18 1254: CARDIAC CONSULT ASSESSMENT/PLAN Assessment/Plan Pt. seen and examined. Agree with above [employer] note. Late entry for 11/18/2018 Non-anginal chest pain. Normal exam. normal EKG, biomarkers and echo. Plan for outpt stress testing. Thanks. LEA Willams DC., APRN Nov 18, 2018 19:22 TODD LLOYD MD Nov 19, 2018 12:54
[2018-11-18 19:39] VITALS: BP 139/66
[2018-11-18] MEDS ORDERED: ATORVASTATIN CALCIUM 20 MG TABLET PO SCH (21:00)
[2018-11-18] MEDS ORDERED: CARVEDILOL 3.125 MG TABLET PO SCH (21:00)
[2018-11-18 23:07] VITALS: BP 106/48
[2018-11-19 05:40] VITALS: BP 115/69
[2018-11-19] MEDS ORDERED: ASPIRIN 81 MG TAB.CHEW PO SCH (08:00)
[2018-11-19] MEDS ORDERED: CARVEDILOL 6.25 MG TABLET PO SCH (08:00)
--- NOTE | 2018-11-19 08:01 | EKG ---
[address] [address] Test Date: 2018-11-18 Test Time: 11:48:56 Pat Name: CALEB TAYLOR Department: Room: 123 A Gender: F Manager Of Learning: : 1950 Requested By: MERCED ADKINS Order Number: [id number] Reading MD: Measurements Intervals [place] Rate: 58 P: 45 UT: 132 QRS: 81 QRSD: 78 T: 47 QT: 428 QTc: 424 Interpretive Statements SINUS RHYTHM NORMAL ECG RI6.01 No previous ECG available for comparison
--- NOTE | 2018-11-19 10:34 | CARD ---
MR#: [id number] Date of Study: 11/19/2018 Ordering Physician: MERCED ADKINS, Referring Physician: MERCED ADKINS Tech: Celine Valdovinos RDCS APPROVED REPORT EXAM: Two-dimensional and M-mode echocardiogram with Doppler and color Doppler. Other Information Quality : Good Technically limited study due to body habitus. INDICATION Chest Pain 2D DIMENSIONS RVDd2.8 (2.9-3.5cm)Left Atrium(2D)2.7 (1.6-4.0cm) IVSd1.0 (0.7-1.1cm)Aortic Root(2D)2.2 (2.0-3.7cm) LVDd3.7 (3.9-5.9cm)PWd1.0 (0.7-1.1cm) LVDs2.4 (2.5-4.0cm)FS (%) 34.9 % SV37.4 mlLVEF(%)65.0 (>50%) Aortic Valve AoV Peak Jagdish.125.9cm/sAoV VTI28.5cm AO Peak GR.6.3mmHgAO Mean GR.3mmHg EDDI (VTI)2.87cm2 Mitral Valve MV E Akytabpu99.1cm/sMV DECEL [id number] MV A Eoudokof40.4cm/sE/A Ratio1.2 Tricuspid Valve TR P. Hoxvrvwh261jk/sRAP RCZZIDET9qaOa TR Peak Gr.39suZsAMOJ22ttDa LEFT VENTRICLE The left ventricle is normal size. There is normal left ventricular wall thickness. The left ventricu lar systolic function is normal and the ejection fraction is within normal range. The Ejection Fracti on is 60-65%. There is normal LV segmental wall motion. Transmitral Doppler flow pattern is Grade I-a bnormal relaxation pattern. RIGHT VENTRICLE The right ventricle is normal size. The right ventricular systolic function is normal. ATRIA The left atrium size is normal. The right atrium size is normal. The interatrial septum is intact wit h no evidence for an atrial septal defect or patent foramen ovale as noted on 2-D or Doppler imaging. AORTIC VALVE The aortic valve is calcified but opens well. Doppler and Color Flow revealed no significant aortic r egurgitation. There is no significant aortic valvular stenosis. MITRAL VALVE The mitral valve is calcified but opens well. Mitral annular calcification is mild. There is no evide nce of mitral valve prolapse. There is no mitral valve stenosis. Doppler and Color-flow revealed trac e mitral regurgitation. TRICUSPID VALVE The tricuspid valve is normal in structure and function. Doppler and Color Flow revealed trace to mil d tricuspid regurgitation. There is mild pulmonary hypertension. The PA pressure was estimated at 40 mmHg. There is no tricuspid valve stenosis. PULMONIC VALVE The pulmonic valve is not well visualized. Doppler and Color Flow revealed no pulmonic valvular regur gitation. There is no pulmonic valvular stenosis. GREAT VESSELS The aortic root is normal in size. The ascending aorta is normal in size. The IVC is normal in size a nd collapses >50% with inspiration. PERICARDIAL EFFUSION There is no evidence of significant pericardial effusion. Critical Notification Critical Value: No <Conclusion> The left ventricular systolic function is normal and the ejection fraction is within normal range. Th e Ejection Fraction is 60-65%. There is normal LV segmental wall motion. Doppler and Color Flow revealed trace to mild tricuspid regurgitation. There is mild pulmonary hypert ension. The PA pressure was estimated at 40 mmHg. Technically difficult study Signed by : Fer Monk, Electronically Approved : 11/19/2018 10:34:47
[2018-11-19 10:51] VITALS: BP 156/63
--- NOTE | 2018-11-19 13:02 | HP ---
ADMIT DATE: 11/18/2018 No dictation. MERCED ADKINS MD DR: IGOR/perlita JOB#: [id number] / [id number]
--- NOTE | 2018-11-19 13:22 | HP ---
ADMIT DATE: 11/18/2018 HISTORY OF PRESENT ILLNESS: The patient is a 68-year-old female patient who came to the Emergency Room complaining of chest pain, mostly in the left side of the chest near the left infraclavicular area. Also, she did some yard work and her back has been also hurting her. She said that she woke up from sleep and started having this pain that increases with both exertion as well as movement of her left arm. She denied any nausea or vomiting. Denied any shortness of breath. Denied any sweating. She had had a similar discomfort in November 2012 when she was diagnosed with an [place]. She underwent cardiac catheterization and the clot resolved as it was being manipulated. She denied having any cardiac stents. By the time she arrived to the Emergency Room, her chest pain has improved down to 3/10 and increases normally to up to 8 and 9/10 with exertion or movement and the pain is not aggravated by taking a deep breath, coughing, or sneezing. She was evaluated in the Emergency Room, has had a chest x-ray, which was basically unremarkable. Her EKG showed that she was in sinus bradycardia with a heart rate of 58 beats per minute with normal QTc and no ST segment elevation. Her first set of cardiac enzyme was less than 0.017 and the patient was admitted to do 2 sets of cardiac enzyme with a consult to cardiology team. PAST MEDICAL HISTORY: Significant for hypertension, hyperlipidemia, coronary artery disease, status post myocardial infarction. She follows with the Cardiology team at [facility]. She has multiple stress tests, although she cannot recall when was the last time done. PAST SURGICAL HISTORY: Significant for tonsillectomy as well as cardiac catheterization. ALLERGIES: She is allergic to TETANUS TOXOID. MEDICATIONS: She is currently on following medications: She is on atorvastatin calcium 20 mg at bedtime, carvedilol 3.125 mg twice a day, carvedilol 3.125 mg daily at nighttime, aspirin 81 mg once a day, and Tylenol 650 mg every 4 hours. FAMILY HISTORY: She has 2 brothers and 1 sister, all healthy. Father is still alive at age of 92 and has hypertension. Mother at the age of 62 because of natural causes. SOCIAL HISTORY: She is , has 1 son. She smokes half a pack a day, does not drink alcohol or use recreational drugs. She is retired. REVIEW OF SYSTEMS: The patient denied any blurring of vision, cataract, glaucoma or macular degeneration. Denied any earache, tinnitus or sensorineural deafness. Denied any nosebleeds, stuffy nose, or postnasal drip. Denied any sore throat, sore tongue, toothache, hoarseness of voice or difficulty swallowing. Denied any nausea, vomiting, diarrhea or constipation. Denied any hematemesis, melena or hematochezia. Denied any dysuria, frequency or hematuria. Did complain of chest pain, but denied any orthopnea or paroxysmal nocturnal dyspnea. Denied any shortness of breath, cough, phlegm or hemoptysis. Denied any chills, rigors or fever. PHYSICAL EXAMINATION: GENERAL: On arrival to the Emergency Room, she looked well and was clearly in no apparent respiratory distress. No pallor, jaundice or cyanosis. No lymphadenopathy, no thyromegaly. No jugular venous distension. No limb edema. VITAL SIGNS: Her heart rate was 68, blood pressure was 167/61, temperature was 98, respiratory rate was 20, and her oxygen saturation was 97% on room air. HEAD, EYES, EARS, NOSE, AND THROAT: Showed normocephalic, atraumatic. NECK: Supple. HEART: Showed normal first and second heart sounds. No gallop or murmur. CHEST: Clear to auscultation. No crepitation or rhonchi. ABDOMEN: Distended, soft, nontender. No guarding or rigidity. No organomegaly. All hernial orifices intact. Bowel sounds normal. NEUROLOGIC: She was awake, alert, and responding appropriately. All cranial nerves are intact. EXTREMITIES: She moves extremities without difficulty. She ambulates without assistance or assistive devices. LABORATORY DATA: She had a lab work done on admission showed a white cell count 7900, hemoglobin 14.9, hematocrit 44.7, MCV 94 and platelet count of 290,000. Her prothrombin time was 9.9, INR of 1, aPTT was 29. Her chemistry showed a serum sodium of 138, potassium 4.4, chloride 102, bicarbonate 26, anion gap of 10, BUN 11, creatinine 0.8, estimated GFR was 71 mL per minute. Her glucose was 87, calcium was 8.8. Total bilirubin, AST, ALT, alkaline phosphatase were normal. First set of cardiac enzymes showed troponin to be less than 0.017, beta natriuretic peptide was 113, total protein was 6.8, and albumin 3.7. Serum lipase was 102. Her EKG showed that she was in sinus bradycardia with a heart rate of 58 beats per minute, normal axis, normal QTc, corrected QT interval and no ST segment elevation and her chest x-ray showed that the heart size and pulmonary vasculature are normal. No infiltrate or pleural effusion, no pneumothorax. Bony structures unremarkable. Levoconvex scoliosis at the low thoracic and upper lumbar spine is partially seen. PLAN: We will admit the patient and we will consult the cardiology team and decide on further management accordingly. MERCED ADKINS MD DR: IGOR/perlita JOB#: [id number] / [id number]
--- NOTE | 2018-11-19 13:24 | HP ---
ADMIT DATE: 11/18/2018 No dictation. MERCED ADKINS MD DR: IGOR/perlita JOB#: [id number] / [id number]
--- NOTE | 2018-11-19 13:50 | HP ---
ADMIT DATE: HISTORY OF PRESENT ILLNESS: The patient is a 68-year-old female patient who came to the Emergency Room complaining of left-sided chest pain that started when she woke up in the morning and the pain is rated about 8-9/10 in severity on exertion and moving her left upper extremity and goes down to 3/10 at rest. She denied any shortness of breath. Denied any nausea or vomiting. No diaphoresis. Apparently, the patient is known to have coronary artery disease and had had diagnosis of myocardial infarction in 2012. At that time, she underwent cardiac catheterization and the clot is resolved as it was being manipulated. She denied any stent deployment. She was evaluated in the Emergency Room. Her EKG showed that she was in sinus bradycardia with a heart rate of 58 beats per minute with normal axis, normal QTc and no ST segment elevation. Her first set of cardiac enzyme was less than 0.017 and therefore, the patient was admitted to do 2 more sets of cardiac enzyme and to consult the Cardiology team. PAST MEDICAL HISTORY: Significant for coronary artery disease, status post myocardial infarction in 2012, hypertension, hyperlipidemia. She has multiple stress tests and followed by Dr. Monk. PAST SURGICAL HISTORY: Significant for tonsillectomy. ALLERGIES: She is allergic to TETANUS TOXOID. MEDICATIONS: She is currently on following medications: She is on atorvastatin calcium 20 mg at bedtime, carvedilol 3.125 mg, she takes 2 of them in the morning and 1 at night time; aspirin 81 mg once a day and Tylenol 650 mg every 4 hours. FAMILY HISTORY: She has 2 brothers and 1 sister, all healthy. Father is still alive at the age of 92 and has hypertension. Mother at the age of 62 of natural causes. SOCIAL HISTORY: She is , has 1 son. She smokes half a pack a day. Does not drink alcohol or use any recreational drugs. She is a retired Sergeant. REVIEW OF SYSTEMS: The patient denied any blurring of vision, cataract, glaucoma or macular degeneration. Denied any earache, tinnitus or sensorineural deafness. Denied any nosebleeds, stuffy nose or postnasal drip. Denied any sore throat, sore tongue, toothache, hoarseness of voice or difficulty swallowing. Denied any nausea, vomiting, diarrhea or constipation. Denied any hematemesis, melena or hematochezia. Denied any dysuria, frequency or hematuria. Did complain of chest pain. Denied any shortness of breath, orthopnea, paroxysmal nocturnal dyspnea. Denied any cough, phlegm or hemoptysis. PHYSICAL EXAMINATION: GENERAL: On arrival to the Emergency Room, she looked well and was clearly in no apparent respiratory distress. No pallor, jaundice, cyanosis, or thyromegaly. No jugular venous distention. No limb edema. VITAL SIGNS: Her heart rate was 68, blood pressure was 167/61, temperature was 98, respiratory rate 20, and oxygen saturation was 97%. HEAD, EYES, EARS, NOSE, AND THROAT: Normocephalic, atraumatic. NECK: Supple. HEART: Showed normal first and second heart sounds with no gallop, rub or murmur. CHEST: Clear to auscultation. No crepitation or rhonchi. ABDOMEN: Scaphoid, soft, nontender. NEUROLOGIC: She was awake, alert, responding appropriately. All cranial nerves intact. She moves extremities without difficulty. She ambulates without assistance or assistive devices. LABORATORY DATA: On admission showed a white cell count of 7900; hemoglobin 15; hematocrit 45; MCV 94 and platelet count 290,000. Her chemistry showed a serum sodium 138, potassium 4.4, chloride 102, bicarbonate 26, anion gap of 10, BUN 11, creatinine 0.8, estimated GFR was 71 mL per minute. Her glucose was 87. Calcium was 8.8. Total bilirubin, AST, ALT, alkaline phosphatase were normal. Her first set of cardiac enzyme was less than 0.017. Beta natriuretic peptide was 113. Total protein was 6.8, albumin 3.7. Lipase was 102. Her prothrombin time 9.9, INR 1, aPTT was 29. ASSESSMENT AND PLAN: The patient will be admitted, has 2 more sets of cardiac enzyme, consult the Cardiology team and decide on further management accordingly. MERCED ADKINS MD DR: IGOR/perlita JOB#: [id number] / [id number]
--- NOTE | 2018-11-19 17:01 | DS ---
DATE OF DISCHARGE: 11/19/2018 HISTORY OF PRESENT ILLNESS: The patient is a 68-year-old female patient who came to the Emergency Room with complaining of left-sided chest pain that started when she woke up from sleep. The pain is severe up to 8 or 9/10 in severity. Denied any shortness of breath. Denied any nausea or vomiting. Denied any diaphoresis. The pain is lasted for hours, aggravated by movement. She was evaluated in the Emergency Room and had had 3 sets of cardiac enzymes that ruled out myocardial infarction. She was noted to have a sinus bradycardia, although she was on a small dose of Coreg 6.25 mg in the morning and 3.125 mg at bedtime. She was seen by the Cardiology team who recommended that the patient can be discharged to follow up as an outpatient. She did have an echocardiogram done, which showed that her left ventricular systolic function and ejection fraction are within normal limit. The ejection fraction is 60-65%. She has normal left ventricular segmental wall motion. Doppler and color flow revealed [id number] tricuspid regurgitation. There is mild pulmonary hypertension. The pulmonary artery pressure was estimated at 40 mmHg. PHYSICAL EXAMINATION: GENERAL: When I examined her this afternoon, she looked well and was clearly in no apparent respiratory distress, slightly pale, but no jaundice, cyanosis or thyromegaly. No jugular venous distention. No limb edema. VITAL SIGNS: Her heart rate was 50, blood pressure was 156/63, temperature was 98, respiratory rate was 18 and oxygen saturation was 94%. HEAD, EYES, EARS, NOSE AND THROAT: Showed normocephalic, atraumatic. NECK: Supple. HEART: Showed normal first and second heart sounds with no gallop, rub or murmur. CHEST: Clear to auscultation. No crepitation or rhonchi. ABDOMEN: Distended, soft, nontender. NEUROLOGIC: She was awake, alert, responding appropriately. All cranial nerves intact. EXTREMITIES: She moves extremities without difficulty. She ambulates without assistance or assistive devices. LABORATORY DATA: She has 3 sets of cardiac enzymes that all were negative. DISCHARGE MEDICATIONS: She was discharged to continue on carvedilol 6.25 mg in the morning and 3.125 mg at bedtime, aspirin 81 mg once a day, atorvastatin 20 mg at bedtime, acetaminophen 650 mg every 4 hours and ondansetron 4 mg. ASSESSMENT: Chest pain, most likely musculoskeletal. Myocardial infarction is ruled out. She has hypertension, hyperlipidemia, coronary artery disease, status post myocardial infarction. MERCED ADKINS MD DR: IGOR/perlita JOB#: [id number] / [id number]
== END 2018-11-19 14:10 | disposition home or self-care (01) ==
LOC: ER 11:35 → 1 SOUTH 13:28
PROVIDERS: ADMIT Internal Medicine; ATTEND Internal Medicine
DX: R07.89 Other chest pain (principal); F41.9 Anxiety disorder, unspecified; M19.90 Unspecified osteoarthritis, unspecified site; I25.10 Atherosclerotic heart disease of native coronary artery without angina pectoris; E78.00 Pure hypercholesterolemia, unspecified; F17.210 Nicotine dependence, cigarettes, uncomplicated; I10 Essential (primary) hypertension; I25.2 Old myocardial infarction; Z82.49 Family history of ischemic heart disease and other diseases of the circulatory system; Z83.3 Family history of diabetes mellitus; E78.5 Hyperlipidemia, unspecified; R00.1 Bradycardia, unspecified; I27.20 Pulmonary hypertension, unspecified; Z98.890 Other specified postprocedural states
CPT/HCPCS: 36415; 71045; 80053; 80061; 83690; 83880; 84484; 85025; 85610; 85730; 93005; 93306; 99284; G0378; G0379

== ENCOUNTER → 2020-02-10 | Outpatient (CLI) | payer MEDICARE, OTHER ==
--- NOTE | 2020-02-10 17:15 | CARD ---
MR#: [id number] Date of Study: 02/10/2020 Ordering Physician: TODD LLOYD, Referring Physician: TODD LLOYD, Tech: Celine Valdovinos [facility] APPROVED REPORT EXAM: Two-dimensional and M-mode echocardiogram with Doppler and color Doppler. Other Information Quality : Good INDICATION Non-Ischemic Cardiomyopathy, History of Myocardial Infarction RISK FACTORS Smoking 2D DIMENSIONS RVDd2.5 (2.9-3.5cm)Left Atrium(2D)2.8 (1.6-4.0cm) IVSd0.9 (0.7-1.1cm)Aortic Root(2D)2.3 (2.0-3.7cm) LVDd3.9 (3.9-5.9cm)PWd0.7 (0.7-1.1cm) LVDs2.3 (2.5-4.0cm)FS (%) 30.0 % SV48.9 mlLVEF(%)60.0 (>50%) Aortic Valve AoV Peak Jagdish.87.2cm/sAoV VTI16.5cm AO Peak GR.3.0mmHgAO Mean GR.2mmHg EDDI (VTI)3.09cm2 Mitral Valve MV E Lrrjogex55.8cm/sMV DECEL [id number] MV A Prfktqqr48.3cm/sE/A Ratio0.5 Tricuspid Valve TR P. Zilcimuu109ja/sRAP GNKFETXM0pwNh TR Peak Gr.73umSnQGPN35aiFl LEFT VENTRICLE The left ventricle is normal size. There is normal left ventricular wall thickness. The left ventricu lar systolic function is normal and the ejection fraction is within normal range. The Ejection Fracti on is 55-60%. Septal motion consistent with conduction abnormality. Transmitral Doppler flow pattern is Grade I-abnormal relaxation pattern. RIGHT VENTRICLE The right ventricle is normal size. The right ventricular systolic function is normal. ATRIA The left atrium size is normal. The right atrium size is normal. The interatrial septum is intact wit h no evidence for an atrial septal defect or patent foramen ovale as noted on 2-D or Doppler imaging. AORTIC VALVE The aortic valve is not well visualized but is functioning normally by Doppler interrogation. Doppler and Color Flow revealed no significant aortic regurgitation. There is no significant aortic valvular stenosis. MITRAL VALVE The mitral valve is calcified but opens well. There is no evidence of mitral valve prolapse. There is no mitral valve stenosis. Doppler and Color Flow revealed no mitral valve regurgitation noted. TRICUSPID VALVE The tricuspid valve is normal in structure and function. Doppler and Color Flow revealed trace tricus pid regurgitation. The PA pressure was estimated at 33 mmHg. There is no tricuspid valve stenosis. PULMONIC VALVE The pulmonic valve is not well visualized. Doppler and Color Flow revealed trace to mild pulmonic [place] vular regurgitation. There is no pulmonic valvular stenosis. GREAT VESSELS The aortic root is normal in size. The ascending aorta is normal in size. The IVC is normal in size a nd collapses >50% with inspiration. PERICARDIAL EFFUSION There is no evidence of significant pericardial effusion. Critical Notification Critical Value: No <Conclusion> The left ventricle is normal size. The left ventricular systolic function is normal and the ejection fraction is within normal range. The Ejection Fraction is 55-60%. Doppler and Color Flow revealed no significant aortic regurgitation. There is no significant aortic valvular stenosis. Doppler and Color Flow revealed no mitral valve regurgitation noted. Doppler and Color Flow revealed trace tricuspid regurgitation. The PA pressure was estimated at 33 mmHg. Signed by : Robin Reyes MD Electronically Approved : 02/10/2020 17:15:07
== END ==
LOC: ECHO 11:03
PROVIDERS: ATTEND Internal Medicine Cardiovascular Disease
DX: I08.8 Other rheumatic multiple valve diseases (principal); I42.8 Other cardiomyopathies; I25.2 Old myocardial infarction
CPT/HCPCS: 93306

== ENCOUNTER 2020-09-26 01:51 | Emergency (ER) | payer MEDICARE, OTHER ==
[~2020-09-26] VITALS: Ht 162.6 cm; Wt 59.0 kg
--- NOTE | 2020-09-26 02:18 | EKG ---
[address] [address] Test Date: 2020-09-26 Test Time: 02:09:40 Pat Name: CALEB TAYLOR Department: Room: Gender: F Verse Writer: : 1950 Requested By: PIPE CARBONE Order Number: [id number] Reading MD: Kenney Stanford Measurements Intervals [place] Rate: 54 P: 44 [place]: 138 QRS: 64 QRSD: 76 T: 43 QT: 416 QTc: 396 Interpretive Statements SINUS RHYTHM NORMAL ECG RI6.02 Compared to ECG 11/18/2018 11:48:56 No significant changes Electronically Signed On 09-28-2020 15:27:28 CDT by Kenney Stanford
[2020-09-26] MEDS ORDERED: IV RINGERS SOLUTION,LACTATED 1,000 ML IV SCH (02:45)
[2020-09-26] MEDS ORDERED: ASPIRIN CHEWABLE 81 MG TABLET. PO ONE (02:45)
--- NOTE | 2020-09-26 03:23 | RAD ---
EXAM: AP View of the chest DATE: 09/26/2020 2:57 AM INDICATION: Reason: cp / Spl. Instructions: / History: COMPARISON: No Prior FINDINGS: The heart is not enlarged. Mild prominence of the right hilum. No focal parenchymal airspace opacity. No pleural effusion or pneumothorax. IMPRESSION: 1. No radiographic evidence for acute cardiopulmonary process. 2. Mild right hilar prominence, possibly physiologic although underlying mass is not excluded. Consi nell nonemergent dedicated upright PA and lateral views of the chest or further evaluation with noneme rgent CT chest. Electronically signed by: Sean Pritchard MD (09/26/2020 3:20 AM) PROSPER
[2020-09-26 03:24] LABS: BASO # 0.1 x10^3/uL (0.0-0.2); BASO % 1 % (0-3); EOS # 0.1 x10^3/uL (0.0-0.7); EOS % 1 % (0-3); HEMATOCRIT 42.4 % (36.0-47.0); HEMOGLOBIN 14.1 g/dL (12.0-15.5); LYMPH # 2.6 x10^3/uL (1.0-4.8); LYMPH % 28 % (24-48); MEAN CORPUSCULAR HEMOGLOBIN 31 pg (25-35); MEAN CORPUSCULAR HGB CONC 33 g/dL (31-37); MEAN CORPUSCULAR VOLUME 94 fL (79-100); MONO # 0.9 x10^3/uL (0.0-1.1); MONO % 9 % (0-9); NEUT # 5.6 x10^3uL (1.8-7.7); NEUT % 61 % (31-73); PLATELET COUNT 236 x10^3/uL (140-400); RED BLOOD COUNT 4.51 x10^6/uL (3.50-5.40); RED CELL DISTRIBUTION WIDTH 14.6 % (11.5-14.5); WHITE BLOOD COUNT 9.3 x10^3/uL (4.0-11.0)
[2020-09-26 03:25] LABS: CALCIUM 8.2 mg/dL (8.5-10.1); CREATININE 0.8 mg/dL (0.6-1.0); GFR 71.1; POTASSIUM 4.3 mmol/L (3.5-5.1)
[2020-09-26 03:41] LABS: ALBUMIN 3.3 g/dL (3.4-5.0); DIRECT BILIRUBIN 0.1 mg/dL (0.0-0.2); MAGNESIUM 2.1 mg/dL (1.8-2.4); TOTAL BILIRUBIN 0.3 mg/dL (0.2-1.0); TOTAL PROTEIN 6.5 g/dL (6.4-8.2)
--- NOTE | 2020-09-26 03:47 | PHYS DOC ---
Past History Past Medical History: Anxiety, Arthritis, Bronchitis, CAD, High Cholesterol, Hypertension, [place] (PIPE CARBONE MD) Past Surgical History: Tonsillectomy (PIPE CARBONE MD) Smoking: Cigarettes Alcohol Use: Rarely Drug Use: None (PIPE CARBONE MD) General Adult EDM: Chief Complaint: CHEST PAIN HPI: HPI: ".. It all started with some back pain yesterday between my shoulders.. but to night it more in center of my chest.. ".." I ve had previous heart attack... " .." I do have a follow up with Cardiology coming up.. Dr. Monk... Patient is a 70 year old female who presents with above hx and chest pain complaints that started yesterday. Pt. initially located pain in the mid back between her shoulder blades. Pain last 24 hours since being more on the left anterior shoulder area. Nothing seems to make the pain better or worse. There is some pleuritic component of the pain. Patient has past medical history of previous cardiac issues of hypertension, hyperlipidemia, [place] and tricuspid regurgitation. Patient previously has had sinus bradycardia prior EKGs. Had previous cardiac cath in 2019 as well as cardiac echo. Patient does have a history of bronchitis and emphysema. Patient denies any trauma. Patient denies any specific ill contacts. Patient denies any recent travel. Patient currently describes her discomfort as not really pain but generalized uncomfortableness. Patient follows with Dr. Vasquez as a primary. Patient has been taking her cardiac meds previous directed. Patient did however take some extra aspirin tonight before arrival. (PIPE CARBONE MD) Review of Systems: Review of Systems: Constitutional: Denies fever or chills Eyes: Denies change in visual acuity HENT: Denies nasal congestion or sore throat Respiratory: Denies cough or shortness of breath Cardiovascular: Denies chest pain or edema GI: Denies abdominal pain, nausea, vomiting, bloody stools or diarrhea : Denies dysuria Musculoskeletal: Denies back pain or joint pain Integument: Denies rash Neurologic: Denies headache, focal weakness or sensory changes Endocrine: Denies polyuria or polydipsia Lymphatic: Denies swollen glands Psychiatric: Denies depression or anxiety (PIPE CARBONE MD) Family History: Family History: Noncontributory to presentation (PIPE CARBONE MD) Current Medications: Current Meds: See nursing for home meds Current Medications Medications (Trade) Dose Ordered Sig/Thalia Start Time Stop Time Status Last Admin Dose Admin Aspirin (Aspirin Chewable) 324 mg 1X ONCE 09/26/20 02:45 09/26/20 02:46 DC Lactated Ringer's 1,000 ml @ 100 mls/hr Q10H 09/26/20 02:45 09/26/20 12:44 09/26/20 02:45 100 MLS/HR (PIPE CARBONE MD) Allergies: Allergies: Allergies Coded Allergies Type Severity Reaction Last Updated Verified tetanus and diphtheria toxoids Allergy Unknown 09/28/18 Yes (PIPE CARBONE MD) Physical Exam: PE: Constitutional: no acute distress, non-toxic appearance. [] HENT: Normocephalic, atraumatic, bilateral external ears normal, oropharynx moist, no oral exudates, nose normal. [] Eyes: PERRLA, EOMI, conjunctiva normal, no discharge. [] Neck: Normal range of motion, no tenderness, supple, no stridor. [] Cardiovascular: Bradycardic heart rate regular rhythm, no murmur [] PMI slightly to the left Lungs & Thorax: Bilateral breath sounds wheezes bilaterally on auscultation [] Abdomen: Bowel sounds normal, soft, no tenderness, no masses, no pulsatile masses. [] Skin: Warm, dry, no erythema, no rash. Pale. Poor turgor. Back: No tenderness, no CVA tenderness. [] Extremities: No tenderness, no cyanosis, no clubbing, ROM intact, no edema. Arthritic changes. No cording appreciated. Neurologic: Alert and oriented X 3, normal motor function, normal sensory function, no focal deficits noted. [] Psychologic: Affect anxious, judgement normal, mood normal. [] (PIPE CARBONE MD) Current Patient Data: Labs: Laboratory Tests Test 09/26/20 03:00 White Blood Count 9.3 x10^3/uL (4.0-11.0) Red Blood Count 4.51 x10^6/uL (3.50-5.40) Hemoglobin 14.1 g/dL (12.0-15.5) Hematocrit 42.4 % (36.0-47.0) Mean Corpuscular Volume 94 fL (79-100) Mean Corpuscular Hemoglobin 31 pg (25-35) Mean Corpuscular Hemoglobin Concent 33 g/dL (31-37) Red Cell Distribution Width 14.6 % (11.5-14.5) H Platelet Count 236 x10^3/uL (140-400) Neutrophils (%) (Auto) 61 % (31-73) Lymphocytes (%) (Auto) 28 % (24-48) Monocytes (%) (Auto) 9 % (0-9) Eosinophils (%) (Auto) 1 % (0-3) Basophils (%) (Auto) 1 % (0-3) Neutrophils # (Auto) 5.6 x10^3uL (1.8-7.7) Lymphocytes # (Auto) 2.6 x10^3/uL (1.0-4.8) Monocytes # (Auto) 0.9 x10^3/uL (0.0-1.1) Eosinophils # (Auto) 0.1 x10^3/uL (0.0-0.7) Basophils # (Auto) 0.1 x10^3/uL (0.0-0.2) Vital Signs: Vital Signs Date Time Temp Pulse Resp B/P (MAP) Pulse Ox O2 Delivery O2 Flow Rate FiO2 09/26/20 02:19 98.0 57 18 157/59 (91) 97 Room Air (PIPE CARBONE MD) EKG: EKG: My interpretation EKG shows a sinus bradycardia rhythm [] at 54 bpm. No findings of acute STEMI of contralateral changes. EKG was at 202 hours My Interpretation second EKG shows sinus bradycardia 53 bpm. No findings of ac north fork STEMI or contralateral changes. No interval changes from prior EKG. EKG of 545 hours (PIPE CARBONE MD) Radiology/Procedures: Radiology/Procedures: [address] [address] IMAGING REPORT Signed PATIENT: CALEB TAYLOR ACCOUNT: [id number] : 1950 LOCATION: ER AGE: 70 SEX: F EXAM STATUS: REG ER ORD. PHYSICIAN: PIPE CARBONE MD REASON: cp, Rt. hilar mass?, OMNI 350,100ml PROCEDURE: CT ANGIOGRAPHY CHEST EXAM: CT chest with contrast - pulmonary embolus protocol CLINICAL HISTORY: Reason: cp, Rt. hilar mass? COMPARISON: Radiograph 09/26/2020. TECHNIQUE: CT of the chest following the administration of intravenous contrast during the pulmonary arterial phase. Axial, coronal and sagittal reformatted images were generated including MIP images. ---PQRS compliance statement - One or more of the following individualized dose reduction techniques were utilized for this study: 1. Automated exposure control 2. Adjustment of the mA and/or kV according to patient size 3. Use of iterative reconstruction technique--- FINDINGS: CHEST: Diagnostic quality: Adequate. Pulmonary emboli: None seen Right heart strain: None Pulmonary arteries: Normal in caliber. Heart is not enlarged. No pericardial effusion. Coronary calcifications are seen. No pleural effusion or pneumothorax. 2.4 x 1.3 cm subcarinal lymph node is seen. Calcified left hilar lymph node. Right hilar lymph node measures 1.9 x 1.3 cm. Prominence of the right pulmonary artery. Additional prominent to borderline enlarged hilar lymph nodes are seen. No axillary lymphadenopathy. Emphysematous changes are seen. Linear and bandlike opacities lower lobes likely scarring/atelectasis. The previously seen left lower lobe nodular opacity has since resolved. Visualized Upper abdomen: Unremarkable Bones: No aggressive osseous lesion is seen. Degenerative changes at multiple levels in the thoracic spine. IMPRESSION: 1. No evidence for acute pulmonary embolus. 2. Right hilar and mediastinal lymphadenopathy, possibly reactive although metastatic disease is not excluded. Consider short-term follow-up CT. 3. Emphysematous changes are seen. 4. Linear and bandlike opacities lower lobes likely scarring/atelectasis. Electronically signed by: Sean Connell MD (09/26/2020 5:30 AM) [facility] DICTATED AND SIGNED BY: SEAN CONNELL MD DATE: 09/26/20511 CC: PIPE CARBONE MD; DANIEL VASQUEZ MD ~MTH0 0 [][place] [address] IMAGING REPORT Signed PATIENT: CALEB TAYLOR ACCOUNT: [id number] : 1950 LOCATION: ER AGE: 70 SEX: F EXAM STATUS: REG ER ORD. PHYSICIAN: PIPE CARBONE MD REASON: cp PROCEDURE: PORTABLE CHEST 1V EXAM: AP View of the chest DATE: 09/26/2020 2:57 AM INDICATION: Reason: cp / Spl. Instructions: / History: COMPARISON: No Prior FINDINGS: The heart is not enlarged. Mild prominence of the right hilum. No focal parenchymal airspace opacity. No pleural effusion or pneumothorax. IMPRESSION: 1. No radiographic evidence for acute cardiopulmonary process. 2. Mild right hilar prominence, possibly physiologic although underlying mass is not excluded. Consider nonemergent dedicated upright PA and lateral views of the chest or further evaluation with nonemergent CT chest. Electronically signed by: Sean Connell MD (09/26/2020 3:20 AM) [facility] DICTATED AND SIGNED BY: SEAN CONNELL MD DATE: 09/26/20318 CC: PIPE CARBONE MD; DANIEL VASQUEZ MD ~MTH0 0 (PIPE CARBONE MD) Heart Score: C/O Chest Pain: Yes HEART Score for Chest Pain: HEART Score for Chest Pain Response (Comments) Value History Moderately Suspicious 1 ECG Nonspecific Repolarizatio 1 Age > 65 2 Risk Factors 1 or 2 Risk Factors 1 Troponin >1-<3x Normal Limit 1 Total 6 Risk Factors: Risk Factors: DM, Current or recent (<one month) smoker, HTN, HLP, family history of CAD, obesity. Risk Scores: Score 0 - 3: 2.5% MACE over next 6 weeks - Discharge Home Score 4 - 6: 20.3% MACE over next 6 weeks - Admit for Clinical Observation Score 7 - 10: 72.7% MACE over next 6 weeks - Early Invasive Strategies (PIPE CARBONE MD) Course & Med Decision Making: Course & Med Decision Making Pertinent Labs and Imaging studies reviewed. (See chart for details) Discuss labs and EKG findings with patient . Awaiting second troponin at shift change. Impression: 1. Chest pain 2. Emphysema/bronchitis 3. History of hypertension 4. Hx.CADz 5. Hx. of Hyperlipidema 6. Hx [place] Pt. endorsed to Dr. Barger at shift change. Awaiting second troponin. [] (PIPE CARBONE MD) Course & Med Decision Making The patient's repeat troponin is negative. Her condition is not appear to be cardiopulmonary in nature at this time. She is stable for discharge. (ARCHANA BARGER DO) Dragon Disclaimer: Dragon Disclaimer: This electronic medical record was generated, in whole or in part, using a voice recognition dictation system. (PIPE CARBONE MD) Departure Departure: Impression: Primary Impression: Atypical chest pain Additional Impression: Thoracic back pain Disposition: HOME / SELF CARE / HOMELESS Condition: STABLE Referrals: DANIEL VASQUEZ MD (PCP) Patient Instructions: Chest Pain (Nonspecific)-Brief, Thoracic Strain, [id number] Dragon Disclaimer This chart was dictated in whole or in part using Voice Recognition software in a busy, high-work load, and often noisy Emergency Department environment. It may contain unintended and wholly unrecognized errors or omissions. (PIPE CARBONE MD) PIPE CARBONE MD September 26, 2020 03:47 ARCHANA BARGER DO September 26, 2020 07:51
[2020-09-26] MEDS ORDERED: CONTRAST GIVEN. MC PRN (04:15)
[2020-09-26] MEDS ORDERED: IOHEXOL 350 MG/ML 100 ML VIAL. IV ONE (04:15)
[2020-09-26 05:08] LABS: AMPHETAMINE/METHAMPHETAMINE NEG (NEG); BARBITURATES NEG (NEG); BENZODIAZEPINES NEG (NEG); CANNABINOIDS NEG (NEG); COCAINE NEG (NEG); METHADONE NEG (NEG); OPIATES NEG (NEG); PHENCYCLIDINE NEG (NEG)
--- NOTE | 2020-09-26 05:33 | RAD ---
EXAM: CT chest with contrast - pulmonary embolus protocol CLINICAL HISTORY: Reason: cp, Rt. hilar mass? COMPARISON: Radiograph 09/26/2020. TECHNIQUE: CT of the chest following the administration of intravenous contrast during the pulmonary arterial phase. Axial, coronal and sagittal reformatted images were generated including MIP images. ---PQRS compliance statement - One or more of the following individualized dose reduction techniques were utilized for this study: 1. Automated exposure control 2. Adjustment of the mA and/or kV according to patient size 3. Use of iterative reconstruction technique--- FINDINGS: CHEST: Diagnostic quality: Adequate. Pulmonary emboli: None seen Right heart strain: None Pulmonary arteries: Normal in caliber. Heart is not enlarged. No pericardial effusion. Coronary calcifications are seen. No pleural effusion or pneumothorax. 2.4 x 1.3 cm subcarinal lymph node is seen. Calcified left hilar lymph node. Right hilar lymph node m easures 1.9 x 1.3 cm. Prominence of the right pulmonary artery. Additional prominent to borderline en larged hilar lymph nodes are seen. No axillary lymphadenopathy. Emphysematous changes are seen. Linear and bandlike opacities lower lobes likely scarring/atelectasis . The previously seen left lower lobe nodular opacity has since resolved. Visualized Upper abdomen: Unremarkable Bones: No aggressive osseous lesion is seen. Degenerative changes at multiple levels in the thoracic spine. IMPRESSION: 1. No evidence for acute pulmonary embolus. 2. Right hilar and mediastinal lymphadenopathy, possibly reactive although metastatic disease is not excluded. Consider short-term follow-up CT. 3. Emphysematous changes are seen. 4. Linear and bandlike opacities lower lobes likely scarring/atelectasis. Electronically signed by: Sean Pritchard MD (09/26/2020 5:30 AM) [facility]PER
[2020-09-26 06:03] LABS: CLARITY,URINE CLEAR; COLOR,URINE STRAW
[2020-09-26 06:04] LABS: BILIRUBIN,URINE NEG (NEG); GLUCOSE,URINE NEG (NEG)
[2020-09-26 06:05] LABS: BACTERIA,URINE FEW /HPF (0-FEW); NITRITE,URINE NEG (NEG); RBC,URINE OCC /HPF (0-2); SQUAMOUS EPITHELIAL CELL,UR OCC /LPF; UROBILINOGEN,URINE 0.2 mg/dL (0.2 mg/dL); WBC,URINE 0 /HPF (0-4)
--- NOTE | 2020-09-26 06:13 | EKG ---
[address] [address] Test Date: 2020-09-26 Test Time: 05:45:49 Pat Name: CALEB TAYLOR Department: Room: Gender: F [employer]: : 1950 Requested By: PIPE CARBONE Order Number: [id number] Reading MD: Kenney Stanford Measurements Intervals [place] Rate: 53 P: 21 [place]: 144 QRS: 64 QRSD: 80 T: 32 QT: 462 QTc: 436 Interpretive Statements SINUS RHYTHM NORMAL ECG RI6.02 Compared to ECG 09/26/2020 02:09:40 No significant changes Electronically Signed On 09-28-2020 15:27:23 CDT by Kenney Stanford
[2020-09-26 08:00] VITALS: BP 150/72
[2020-09-26 17:56] LABS: THYROID STIM HORMONE (TSH) 2.909 uIU/mL (0.358-3.740)
== END 2020-09-26 08:15 | disposition home or self-care (01) ==
LOC: ER 01:51
DX: R07.89 Other chest pain (principal); M54.6 Pain in thoracic spine; I10 Essential (primary) hypertension; I25.10 Atherosclerotic heart disease of native coronary artery without angina pectoris; E78.5 Hyperlipidemia, unspecified; I25.2 Old myocardial infarction; M19.90 Unspecified osteoarthritis, unspecified site; F41.9 Anxiety disorder, unspecified; E78.00 Pure hypercholesterolemia, unspecified; F17.210 Nicotine dependence, cigarettes, uncomplicated; Z88.7 Allergy status to serum and vaccine; Z79.899 Other long term (current) drug therapy
CPT/HCPCS: 36415; 71045; 71275; 80048; 80061; 80076; 80307; 81001; 82550; 83690; 83735; 83880; 84443; 84484; 85025; 93005; 96360; 96361; 99285; J7120; Q9967

== ENCOUNTER → 2020-11-04 | Outpatient (CLI) | payer MEDICARE, OTHER ==
--- NOTE | 2020-11-04 14:09 | RAD ---
XR FOOT_LEFT 2 VIEWS, XR EXAM OF ANKLE_LEFT 2V History: Reason: LLE PAIN / Spl. Instructions: / History: Technique: 2 views left ankle and 2 views left foot Comparison: None. Findings: Normal alignment of the ankle. No fracture. Normal alignment of the foot. No fracture. Tiny plantar calcaneal spur. Impression: 1. No acute osseous abnormality. Electronically signed by: Morales Gamboa DO (11/04/2020 2:07 PM) [id number]
== END ==
LOC: RAD 13:27
PROVIDERS: ATTEND Nurse Practitioner Family
DX: S99.922A Unspecified injury of left foot, initial encounter (principal); S99.912A Unspecified injury of left ankle, initial encounter; X58.XXXA Exposure to other specified factors, initial encounter; Y92.89 Other specified places as the place of occurrence of the external cause; Y93.89 Activity, other specified; Y99.8 Other external cause status
CPT/HCPCS: 73600; 73620

== ENCOUNTER 2021-02-20 15:10 | Emergency (ER) | payer MEDICARE, OTHER ==
[~2021-02-20] VITALS: Ht 162.6 cm; Wt 55.0 kg
[2021-02-20 15:40] VITALS: BP 169/64
--- NOTE | 2021-02-20 17:06 | RAD ---
Left lower extremity venous ultrasound, : History: Left leg swelling Duplex evaluation including grayscale, color flow and spectral Doppler analysis was performed. The femoral and popliteal veins show no filling defects to suggest DVT. The visualized calf veins are u nremarkable. IMPRESSION: 1. There is no sonographic evidence of deep vein thrombosis in the left lower extremity. Electronically signed by: Tadeo Araujo MD (02/20/2021 5:03 PM) [facility]
--- NOTE | 2021-02-20 17:25 | PHYS DOC ---
Past History Past Medical History: Anxiety, Arthritis, Bronchitis, CAD, High Cholesterol, Hypertension, OK Past Surgical History: Tonsillectomy, Other Additional Past Surgical Histo: cardiac cath, lipoma removed Smoking: Cigarettes Alcohol Use: Rarely Drug Use: None General Adult EDM: Chief Complaint: LOWER EXT PAIN HPI: HPI: Patient is a 70-year-old female that presents today with complaint of left lower leg swelling that started about 9:00 last night. Patient states she has been doing a lot of housework and had wrapped her left knee due to discomfort in an Gallo wrap and left it all day Sunday and all day Sunday and removed it Sunday night. She then noted that her left lower leg was more swollen than her right, she presents today with concern with blood clot in her leg. Patient denies fever, chills, shortness of breath, or chest pain. Review of Systems: Review of Systems: Constitutional: Denies fever or chills Eyes: Denies change in visual acuity HENT: Denies nasal congestion or sore throat Respiratory: Denies cough or shortness of breath Cardiovascular: Denies chest pain or edema GI: Denies abdominal pain, nausea, vomiting, bloody stools or diarrhea : Denies dysuria Musculoskeletal: left lower leg swelling Integument: Denies rash Neurologic: Denies headache, focal weakness or sensory changes Endocrine: Denies polyuria or polydipsia Lymphatic: Denies swollen glands Psychiatric: Denies depression or anxiety Allergies: Allergies: Allergies Coded Allergies Type Severity Reaction Last Updated Verified tetanus and diphtheria toxoids Allergy Unknown 09/28/18 Yes Physical Exam: PE: Constitutional: Well developed, well nourished, no acute distress, non-toxic appearance. [] HENT: Normocephalic, atraumatic, bilateral external ears normal, oropharynx moist, no oral exudates, nose normal. [] Eyes: PERRLA, EOMI, conjunctiva normal, no discharge. [] Neck: Normal range of motion, no tenderness, supple, no stridor. [] Cardiovascular:Heart rate regular rhythm, no murmur [] Lungs & Thorax: Bilateral breath sounds clear to auscultation [] Abdomen: Bowel sounds normal, soft, no tenderness, no masses, no pulsatile masses. [] Skin: Warm, dry, no erythema, no rash. [] Back: No tenderness, no CVA tenderness. [] Extremities: Left lower leg trace edema noted, no redness, negative Homans' sign, pedal pulse 2+ and left leg. Neurologic: Alert and oriented X 3, normal motor function, normal sensory func tion, no focal deficits noted. [] Psychologic: Affect normal, judgement normal, mood normal. [] Current Patient Data: Vital Signs: Vital Signs Date Time Temp Pulse Resp B/P (MAP) Pulse Ox O2 Delivery O2 Flow Rate FiO2 02/20/21 15:40 97.9 65 14 169/64 (99) 98 EKG: EKG: [] Radiology/Procedures: Radiology/Procedures: [PROCEDURE: VENOUS LOWER EXTREMITY LEFT Left lower extremity venous ultrasound, : History: Left leg swelling Duplex evaluation including grayscale, color flow and spectral Doppler analysis was performed. The femoral and popliteal veins show no filling defects to suggest DVT. The visualized calf veins are unremarkable. IMPRESSION: 1. There is no sonographic evidence of deep vein thrombosis in the left lower extremity. Electronically signed by: Tadeo Araujo MD (02/20/2021 5:03 PM) [facility]] Heart Score: C/O Chest Pain: N/A Risk Factors: Risk Factors: DM, Current or recent (<one month) smoker, HTN, HLP, family history of CAD, obesity. Risk Scores: Score 0 - 3: 2.5% MACE over next 6 weeks - Discharge Home Score 4 - 6: 20.3% MACE over next 6 weeks - Admit for Clinical Observation Score 7 - 10: 72.7% MACE over next 6 weeks - Early Invasive Strategies Course & Med Decision Making: Course & Med Decision Making Pertinent Labs and Imaging studies reviewed. (See chart for details) [Reviewed radiology results with patient. No blood clots seen in the leg was sent home patient to follow-up with primary care physician this week. Patient has encouraged to return for shortness of air, chest pain, increased redness or warmth in the left leg, or fever chills. Patient is agreeable to plan to follow-up with her primary care physician in the a.m. and is okay with going home. Patient is to continue current medications. ] Dragon Disclaimer: Dragon Disclaimer: This electronic medical record was generated, in whole or in part, using a voice recognition dictation system. Departure Departure: Impression: Primary Impression: Swelling of lower extremity Disposition: HOME / SELF CARE / HOMELESS Condition: STABLE Referrals: DANIEL LEAL MD (PCP) Patient Instructions: Peripheral Edema Additional Instructions: Continue current medications at home Follow-up with Dr. Leal in the a.m. for further evaluation. DOYLE CARO APRN Feb 20, 2021 17:25
== END 2021-02-20 17:50 | disposition home or self-care (01) ==
LOC: ER 15:10
DX: R60.0 Localized edema (principal); F41.9 Anxiety disorder, unspecified; M19.90 Unspecified osteoarthritis, unspecified site; I25.10 Atherosclerotic heart disease of native coronary artery without angina pectoris; E78.00 Pure hypercholesterolemia, unspecified; I10 Essential (primary) hypertension; I25.2 Old myocardial infarction; F17.210 Nicotine dependence, cigarettes, uncomplicated; Z88.7 Allergy status to serum and vaccine
CPT/HCPCS: 93971; 99284

== ENCOUNTER → 2021-07-14 | Outpatient (CLI) | payer MEDICARE, OTHER ==
--- NOTE | 2021-07-14 12:02 | RAD ---
EXAM: Left knee, 2 views; left shoulder, 3 views; lumbar spine, 3 views; cervical spine, 5 views. HISTORY: Pain. COMPARISON: None. FINDINGS: Left knee: 2 views of the left knee are obtained. There is no fracture, dislocation or subluxation. T here is no joint effusion. Left shoulder: 3 views of the left shoulder obtained. There is no fracture, dislocation or subluxatio n. Lumbar spine: 3 views of the lumbar spine are obtained. There are 6 nonrib-bearing vertebral segments , a normal variant. There is mild lumbar scoliosis and hyperlordosis. There is degenerative endplate remodeling primarily at L5 to L6. There is facet arthropathy at the lower lumbar levels. There is no fracture. Cervical spine: 5 views of the cervical spine are obtained. There is minimal anterolisthesis of C3 on C4 and C4 on C5, minimal retrolisthesis of C5 on C6 and minimal anterolisthesis of C7 on T1. There i s degenerative endplate remodeling with disc space narrowing and osteophytosis primarily at C5-C6. Th ere is multilevel facet and uncovertebral arthropathy. There is a mild inferior right lateral head ti lt. There is calcified plaque involving the right carotid bifurcation. IMPRESSION: 1. Multilevel degenerative change involving the cervical spine, primarily at C5-C6. 2. Multilevel degenerative change involving the lumbar spine, primarily at L5-L6. There are 6 nonrib- bearing vertebral segments, and normal variant. 3. No acute finding involving the left knee or left shoulder. Electronically signed by: Clara Friedman MD (07/14/2021 12:00 PM) [id number]
== END ==
LOC: RAD 11:32
PROVIDERS: ATTEND Physician Assistant
DX: I65.23 Occlusion and stenosis of bilateral carotid arteries (principal); M47.816 Spondylosis without myelopathy or radiculopathy, lumbar region; M47.22 Other spondylosis with radiculopathy, cervical region; M48.8X6 Other specified spondylopathies, lumbar region; M41.86 Other forms of scoliosis, lumbar region; M48.02 Spinal stenosis, cervical region; M43.12 Spondylolisthesis, cervical region; M25.78 Osteophyte, vertebrae; M48.8X2 Other specified spondylopathies, cervical region; M25.512 Pain in left shoulder; M79.2 Neuralgia and neuritis, unspecified; M25.562 Pain in left knee
CPT/HCPCS: 72050; 72100; 73030; 73560